=== PATIENT | female | born 1980 | race Caucasian/White ===

== ENCOUNTER 2020-11-06 10:56 | Emergency (ER) | payer OTHER, SELFPAY ==
[~2020-11-06] VITALS: Ht 162.6 cm; Wt 64.4 kg
[2020-11-06 10:57] VITALS: Ht 162.6 cm; Wt 64.4 kg
[2020-11-06 13:40] VITALS: BP 138/71
== END 2020-11-06 13:40 | disposition home or self-care (01) ==
LOC: ED 10:56
DX: U07.1 COVID-19 (principal)
CPT/HCPCS: 87804; U0003